=== PATIENT | female | born 1995 | race Caucasian/White ===

== ENCOUNTER 2021-06-12 14:37 | Emergency (ER) | payer OTHER, SELFPAY ==
--- NOTE | ~2021-06-12 | CT_ITS ---
EXAMINATION: CT ABDOMEN AND PELVIS WITH CONTRAST CLINICAL INFORMATION: Severe abdominal pain. Elevated white blood cell count. COMPARISON: None TECHNIQUE: Multidetector volumetric images were obtained from the superior aspect of the liver through the pubic symphysis following administration 85 mL of Omnipaque 350 intravenous contrast. Sagittal and coronal reformatted images were obtained on the technologist's workstation. Oral contrast: No This CT examination was performed using dose optimization techniques as appropriate, variously including the following: *Automated exposure control *Adjustment of mA and/or kV according to patient size (this includes techniques or standardized protocols for targeted exams where dose is matched to indication/reason for exam; i.e. extremities or head) *Use of iterative reconstruction technique DLP: 563 mGy-cm FINDINGS: LUNG BASES: The visualized lung bases are clear. Trace pericardial fluid at the inferior margin of the heart.. LIVER, GALLBLADDER, AND BILIARY TREE: The liver is normal in size, shape, and attenuation. No focal hepatic lesion or biliary ductal dilatation is present. The gallbladder is unremarkable with no evidence of radiopaque gallstones, gallbladder wall thickening, or obvious pericholecystic inflammatory changes. PANCREAS: Unremarkable. SPLEEN: Unremarkable. ADRENAL GLANDS: Unremarkable. KIDNEYS AND URETERS: The kidneys are normal in size, shape, and attenuation. No hydronephrosis, hydroureter, or calculi seen. No perinephric stranding. BLADDER: Unremarkable. GASTROINTESTINAL TRACT: The stomach is mostly decompressed and appears unremarkable. The small bowel is normal in caliber. There is no obstruction. Normal appendix. No colonic wall thickening or inflammatory change. Much of the colon is decompressed. No free air or free fluid. ABDOMINAL WALL: No significant hernia is appreciated. LYMPH NODES: Normal. VASCULAR: Normal caliber aorta. Circumaortic left renal vein. PELVIC VISCERA: The uterus and adnexa are unremarkable. OSSEOUS STRUCTURES: Unremarkable. CT/CT abdomen pelvis w con IMPRESSION: No acute finding in the abdomen or pelvis. No inflammatory change.
[2021-06-12 14:48] VITALS: BP 122/78; BP 126/80; PULSE 68; PULSE 88; RESP 18; TEMP 37.2; O2SAT 100; BMI 26.6
--- NOTE | 2021-06-12 14:51 | ED.NAVMDI ---
HPI - Nausea/Vomiting/Diarrhea General Chief complaint: Abdominal Pain <DEEPIKA Mast - Last Filed: 06/12/21 17:27> Stated complaint: nausea/vomiting <DEEPIKA Mast - Last Filed: 06/12/21 17:27> Time Seen by Provider: 06/12/21 14:41 <DEEPIKA Mast Last Filed: 06/12/21 17:27> Source: patient and EMS <DEEPIKA Mast - Last Filed: 06/12/21 17:27> Mode of arrival: EMS <DEEPIKA Mast Last Filed: 06/12/21 17:27> Limitations: no limitations <DEEPIKA Mast Last Filed: 06/12/21 17:27> History of Present Illness HPI Narrative: 26 y/o female presents to the ER from work via EMS with acute onset of nausea, bilious vomiting and abdominal pain that started 1-2 hours ago. She reports waking up feeling fine. She went to work and all of the sudden started vomiting. She has diffuse abdominal pain from all the vomiting. She has only been able to bring up bile. No fever, chills, diarrhea. Last BM yesterday and it was normal. She has no urinary symptoms. Denies chance of . LMP 5 days ago, now done. She received zofran and tylenol from EMS. On arrival she is restless, moaning, tachypneic and anxious. <DEEPIKA Mast - Last Filed: 06/12/21 17:27> MD elicited complaint: nausea, vomiting and abdominal pain <DEEPIKA Mast - Last Filed: 06/12/21 17:27> Onset (ago): hour(s) (1) <DEEPIKA Mast - Last Filed: 06/12/21 17:27> Description of vomiting: bilious <DEEPIKA Mast - Last Filed: 06/12/21 17:27> Associated nausea: Yes <DEEPIKA Mast Last Filed: 06/12/21 17:27> Associated abdominal pain: Yes <DEEPIKA Mast Last Filed: 06/12/21 17:27> Location of pain: diffuse <DEEPIKA Mast - Last Filed: 06/12/21 17:27> Radiation: diffuse <DEEPIKA Mast - Last Filed: 06/12/21 17:27> Pain consistency: constant <DEEPIKA Mast Last Filed: 06/12/21 17:27> Severity: moderate <DEEPIKA Mast Last Filed: 06/12/21 17:27> Quality: stabbing and aching <DEEPIKA Mast Last Filed: 06/12/21 17:27> Exacerbating factors: none <DEEPIKA Mast Last Filed: 06/12/21 17:27> Relieving factors: none <DEEPIKA Mast Last Filed: 06/12/21 17:27> Associated symptoms: nausea/vomiting and anxiety <DEEPIKA Mast Last Filed: 06/12/21 17:27> Related Data Allergies/Adverse reactions: Allergies Allergy/AdvReac Type Severity Reaction Status Date / Time Unable to Assess Allergy Unverified 06/12/21 14:57 <DEEPIKA Msat Last Filed: 06/12/21 17:27> Review of Systems Constitutional: Constitutional: Denies chills, Denies fever(s) and Denies headache(s) <DEEPIKA Mast Last Filed: 06/12/21 17:27> Eyes: Eyes: Reports no additional eye complaints <DEEPIKA Mast Last Filed: 06/12/21 17:27> ENT: Reports Normal hearing present, Denies headache(s) and Denies sore throat <DEEPIKA Mast Last Filed: 06/12/21 17:27> Cardiovascular: Cardiovascular: Denies chest pain and Denies dyspnea <DEEPIKA Mast Last Filed: 06/12/21 17:27> Respiratory: Respiratory: Denies chest congestion, Denies cough and Denies dyspnea <DEEPIKA Mast Last Filed: 06/12/21 17:27> Gastrointestinal: Gastrointestinal: Reports abdominal pain, Reports belching, Denies hematochezia, Denies constipation, Denies diarrhea, Reports nausea, Reports vomiting and Denies hematemesis <DEEPIKA Mast - Last Filed: 06/12/21 17:27> Genitourinary: Genitourinary: Denies abnormal vaginal bleeding, Denies dysuria and Denies pelvic pain <DEEPIKA Mast - Last Filed: 06/12/21 17:27> Musculoskeletal: Musculoskeletal: Denies back pain and Denies myalgias <DEEPIKA Mast - Last Filed: 06/12/21 17:27> Integumentary/Breasts: Skin/Breast: Denies rash <DEEPIKA Mast - Last Filed: 06/12/21 17:27> Neurologic: Reports Normal hearing present and Denies headache(s) <DEEPIKA Mast - Last Filed: 06/12/21 17:27> Psychiatric: Psychiatric: Reports anxiety <DEEPIKA Mast - Last Filed: 06/12/21 17:27> Hematologic/Lymphatic: Hematologic/Lymphatic: Denies easy bleeding and Denies easy bruising <DEEPIKA Mast - Last Filed: 06/12/21 17:27> [facility] Past Medical History Medical History: Medical History (Updated 06/12/21 @ 17:27 by DEEPIKA Mast) No known health problems <DEEPIKA Mast - Last Filed: 06/12/21 17:27> Social History Social History: Social History Advance Directives: No Advance Directives Information Provided: No Patient : No <DEEPIKA Mast - Last Filed: 06/12/21 17:27> Physical Exam Vital Signs: Vital Signs: Last Vital Signs Temp 99 F 06/12/21 14:48 Pulse 68 06/12/21 14:48 Resp 18 06/12/21 14:48 BP 122/78 06/12/21 14:48 Pulse Ox 100 06/12/21 14:48 Body Mass Index 26.6 <DEEPIKA Mast - Last Filed: 06/12/21 17:27> Vital Signs: Last Vital Signs Temp 99 F 06/12/21 14:48 Pulse 68 06/12/21 14:48 Resp 18 06/12/21 14:48 BP 122/78 06/12/21 14:48 Pulse Ox 100 06/12/21 14:48 Body Mass Index 26.6 <DEEPIKA Cevallos Last Filed: 06/12/21 19:08> Const: General: well developed, alert, awake, acute distress (in pain) moderate and anxious <DEEPIKA Mast Last Filed: 06/12/21 17:27> Nutritional Appearance: average body habitus <DEEPIKA Mast Last Filed: 06/12/21 17:27> Orientation/consciousness: patient oriented x3 <DEEPIKA Mast Last Filed: 06/12/21 17:27> Limitations: no limitations <DEEPIKA Mast Last Filed: 06/12/21 17:27> HENMT: Head: Yes normal to inspection <DEEPIKA Mast Last Filed: 06/12/21 17:27> Ears: hearing grossly normal bilaterally and external ears normal <DEEPIKA Mast Last Filed: 06/12/21 17:27> General nose exam: Normal external nose present and Normal nares present <DEEPIKA Mast Last Filed: 06/12/21 17:27> Face and sinus: Yes normal facial exam and Yes face symmetric <DEEPIKA Mast Last Filed: 06/12/21 17:27> Mouth: Normal oral and palatal mucosa present, lip normal and tongue normal <DEEPIKA Mast Last Filed: 06/12/21 17:27> Teeth and gingiva: dentition normal and gingiva normal <DEEPIKA Mast Last Filed: 06/12/21 17:27> Throat: Yes posterior oropharynx normal, Yes tonsils normal and Yes uvula midline <DEEPIKA Mast Last Filed: 06/12/21 17:27> Eyes: General: appearance normal, both eyes and all related structures <DEEPIKA Mast Last Filed: 06/12/21 17:27> Neck: Neck: Yes normal visual inspection <DEEPIKA Mast Last Filed: 06/12/21 17:27> Chest: Chest palpation & inspection: normal inspection of the chest <DEEPIKA Mast Last Filed: 06/12/21 17:27> Resp: Effort & Inspection: able to speak in complete sentences and tachypneic <DEEPIKA Mast - Last Filed: 06/12/21 17:27> Auscultation: clear to auscultation bilaterally <DEEPIKA Mast - Last Filed: 06/12/21 17:27> Cardio: Rate: regular rate <DEEPIKA Mast - Last Filed: 06/12/21 17:27> Rhythm: regular rhythm <DEEPIKA Mast - Last Filed: 06/12/21 17:27> Heart sounds: S1 normal heart sound present and S2 normal heart sound present <DEEPIKA Mast - Last Filed: 06/12/21 17:27> GI: Inspection: Yes normal to inspection <DEEPIKA Mast - Last Filed: 06/12/21 17:27> Palpation (GI): Soft to palpation, Tenderness to palpation present (GI) periumbilically, no guarding and not rigid <DEEPIKA Mast - Last Filed: 06/12/21 17:27> Percussion: Yes normal to percussion <DEEPIKA Mast - Last Filed: 06/12/21 17:27> Auscultation: normal bowel sounds <DEEPIKA Mast - Last Filed: 06/12/21 17:27> Rectal Exam - Female: deferred <DEEPIKA Mast - Last Filed: 06/12/21 17:27> Skin: General skin exam: no rashes or lesions noted <DEEPIKA Mast - Last Filed: 06/12/21 17:27> Neuro: General: patient oriented x3 and moves all extremities <DEEPIKA Mast - Last Filed: 06/12/21 17:27> Cranial nerves: Yes Normal hearing present <DEEPIKA Mast - Last Filed: 06/12/21 17:27> Extrem: General: Yes normal to inspection, Yes full ROM, Yes no pedal edema and Yes no calf tenderness <DEEPIKA Mast - Last Filed: 06/12/21 17:27> Psych: Appearance: grossly normal <DEEPIKA Mast - Last Filed: 06/12/21 17:27> Speech and movement: Clear speech present <DEEPIKA Mast - Last Filed: 06/12/21 17:27> Affect: Animated affect present and Anxious affect present <DEEPIKA Mast - Last Filed: 06/12/21 17:27> Course Course Course Narrative: 26 y/o female presenting with acute onset of N/V and severe abdominal pain for the last 2 hours. Abd is soft with some central tenderness, no guarding or rigidity. She reports the pain is all over her abdomen. Her VS are normal. Will get basic labs, check Utox - admits to marijuana use but denies any history of cyclical vomiting. Will give dose of benadryl and reglan and reassess. <DEEPIKA Mast - Last Filed: 06/12/21 17:27> Reevaluation(s) Reevaluation #1: Continues to have nausea and severe pain. Will give dose of morphine and ativan. WBC 16K, likely reactive from vomiting however given her reports of severe pain with some central tenderness, will get CT of her abd as well. Will sign out to night provider to f/u imaging and reassess. <DEEPIKA Mast - Last Filed: 06/12/21 17:27> Time: 19:00 <DEEPIKA Ceavllos - Last Filed: 06/12/21 19:08> Reevaluation #2: -CT abdomen pelvis w con IMPRESSION: No acute finding in the abdomen or pelvis. No inflammatory change.? > results discussed with patient, she reports symptomatic improvement. Tolerated p.o. Joanne Jennifer and Jell-O in the ED without nausea or vomiting. Discussed with patient she should follow-up with GI, already has a prescription for Zofran. Worrisome signs and symptoms and strict return precautions discussed, she verbalized understanding feel safe for discharge home <DEEPIKA Cevallos - Last Filed: 06/12/21 19:08> MDM - Nausea/Vomiting/Diarrhea Lab Data Result diagrams: : 06/12/21 16:24 06/12/21 16:24 <DEEPIKA Mast - Last Filed: 06/12/21 17:27> Labs: Lab Results 06/12/21 06/12/21 06/12/21 Range/Units 15:48 16:24 16:24 WBC 16.1 H (4.8-10.8) X10*3/uL RBC 4.42 (4.20-5.50) X10*6/uL Hgb 13.2 (12.0-16.0) g/dl Hct 39.7 (37-47) % MCV 89.8 (80-98) fL MCH 29.9 (27.0-33.0) pg MCHC 33.2 (31.0-35.0) g/dl RDW 12.0 (11.0-16.0) % Plt Count 271 (160-400) X10*3/uL MPV 10.9 (9.4-12.3) fL Immature Gran % (Auto) 0.5 H (0.0-0.4) % Neut % (Auto) 79.0 H (45-73) % Lymph % (Auto) 13.0 L (20-40) % [place] % (Auto) 6.9 (2-11) % Eos % (Auto) 0.2 (0-4) % Baso % (Auto) 0.4 (0-2) % Lymph # (Auto) 2.1 (1.2-4.9) X10*3/uL [place] # (Auto) 1.1 (0.1-1.2) X10*3/uL Eos # (Auto) 0.0 (0.0-0.4) X10*3/uL Baso # (Auto) 0.1 (0.0-0.2) X10*3/uL Abs Immat Gran (auto) 0.08 H (0.00-0.03) X10*3/uL Absolute Neuts (auto) 12.7 H (2.0-8.3) X10*3/uL Absolute Nucleated RBC 0.000 (0.0-0.012) X10*3/uL Nucleated RBC % (auto) 0.0 (0.0-0.2) /100WBC Sodium 140 (135-145) mmol/L Potassium 3.5 (3.3-5.1) mmol/L Chloride 108 (96-108) mmol/L Carbon Dioxide 18 L (22-29) mmol/L Anion Gap 18 (12-20) BUN 10 (9-16) mg/dL Creatinine 0.74 (0.5-1.4) mg/dL Estim Creat Clear Calc 126.3 Estimated GFR > 60 Random Glucose 131 H (60-115) mg/dL Calcium 8.3 L (8.4-10.2) mg/dL Magnesium 2.0 (1.6-2.6) mg/dL Total Bilirubin 1.3 H (0.0-1.0) mg/dL Direct Bilirubin 0.3 (0.0-0.5) mg/dL AST 22 (5-31) U/L ALT 15 (0-31) U/L Alkaline Phosphatase 60 (39-117) U/L Total Protein 7.1 (6.5-8.0) g/dL Albumin 4.1 (3.5-5.0) g/dL Lipase 14 (8-78) U/L Beta HCG, Quant < 2 mIU/mL Urine Color Urine Appearance Urine pH (5.0-8.0) Ur Specific [place] (1.005-1.025) Urine Protein (NEG-TRACE) MG/DL Urine Glucose (UA) (NEG) MG/DL Urine Ketones (NEG) MG/DL Urine Blood (NEG) Urine Nitrite (NEG) Ur Leukocyte Esterase (NEG) Urine RBC (0) /HPF Urine WBC (0-4) /HPF Ur Squamous Epith Cells /LPF Urine Bacteria /LPF Urine Opiates Screen (Not Detect) Urine Fentanyl Screen (Not Detect) Ur Barbiturates Screen (Not Detect) Ur Phencyclidine Scrn (Not Detect) Ur Amphetamines Screen (Not Detect) U Benzodiazepines Scrn (Not Detect) Urine Cocaine Screen (Not Detect) U Marijuana (THC) Screen (Not Detect) Coronavirus (PCR) NEGATIVE (Negative) Influenza Type A (PCR) NEGATIVE (Negative) Influenza Type B (PCR) NEGATIVE (Negative) RSV RNA Qual (PCR) NEGATIVE (Negative) 06/12/21 06/12/21 Range/Units 16:24 16:24 WBC (4.8-10.8) X10*3/uL RBC (4.20-5.50) X10*6/uL Hgb (12.0-16.0) g/dl Hct (37-47) % MCV (80-98) fL MCH (27.0-33.0) pg MCHC (31.0-35.0) g/dl RDW (11.0-16.0) % Plt Count (160-400) X10*3/uL MPV (9.4-12.3) fL Immature Gran % (Auto) (0.0-0.4) % Neut % (Auto) (45-73) % Lymph % (Auto) (20-40) % [place] % (Auto) (2-11) % Eos % (Auto) (0-4) % Baso % (Auto) (0-2) % Lymph # (Auto) (1.2-4.9) X10*3/uL [place] # (Auto) (0.1-1.2) X10*3/uL Eos # (Auto) (0.0-0.4) X10*3/uL Baso # (Auto) (0.0-0.2) X10*3/uL Abs Immat Gran (auto) (0.00-0.03) X10*3/uL Absolute Neuts (auto) (2.0-8.3) X10*3/uL Absolute Nucleated RBC (0.0-0.012) X10*3/uL Nucleated RBC % (auto) (0.0-0.2) /100WBC Sodium (135-145) mmol/L Potassium (3.3-5.1) mmol/L Chloride (96-108) mmol/L Carbon Dioxide (22-29) mmol/L Anion Gap (12-20) BUN (9-16) mg/dL Creatinine (0.5-1.4) mg/dL Estim Creat Clear Calc Estimated GFR Random Glucose (60-115) mg/dL Calcium (8.4-10.2) mg/dL Magnesium (1.6-2.6) mg/dL Total Bilirubin (0.0-1.0) mg/dL Direct Bilirubin (0.0-0.5) mg/dL AST (5-31) U/L ALT (0-31) U/L Alkaline Phosphatase (39-117) U/L Total Protein (6.5-8.0) g/dL Albumin (3.5-5.0) g/dL Lipase (8-78) U/L Beta HCG, Quant mIU/mL Urine Color YELLOW Urine Appearance CLEAR Urine pH 7.5 (5.0-8.0) Ur Specific [place] 1.015 (1.005-1.025) Urine Protein NEG (NEG-TRACE) MG/DL Urine Glucose (UA) NEG (NEG) MG/DL Urine Ketones 40 (NEG) MG/DL Urine Blood NEG (NEG) Urine Nitrite NEG (NEG) Ur Leukocyte Esterase 2+ H (NEG) Urine RBC 0 (0) /HPF Urine WBC 1-4 (0-4) /HPF Ur Squamous Epith Cells 3+ /LPF Urine Bacteria 4+ /LPF Urine Opiates Screen Not Detected (Not Detect) Urine Fentanyl Screen Not Detected (Not Detect) Ur Barbiturates Screen Not Detected (Not Detect) Ur Phencyclidine Scrn Not Detected (Not Detect) Ur Amphetamines Screen Not Detected (Not Detect) U Benzodiazepines Scrn Not Detected (Not Detect) Urine Cocaine Screen Not Detected (Not Detect) U Marijuana (THC) Screen POSITIVE H (Not Detect) Coronavirus (PCR) (Negative) Influenza Type A (PCR) (Negative) Influenza Type B (PCR) (Negative) RSV RNA Qual (PCR) (Negative) <DEEPIKA Mast - Last Filed: 06/12/21 17:27> Lab Results 06/12/21 06/12/21 06/12/21 Range/Units 15:48 16:24 16:24 WBC 16.1 H (4.8-10.8) X10*3/uL RBC 4.42 (4.20-5.50) X10*6/uL Hgb 13.2 (12.0-16.0) g/dl Hct 39.7 (37-47) % MCV 89.8 (80-98) fL MCH 29.9 (27.0-33.0) pg MCHC 33.2 (31.0-35.0) g/dl RDW 12.0 (11.0-16.0) % Plt Count 271 (160-400) X10*3/uL MPV 10.9 (9.4-12.3) fL Immature Gran % (Auto) 0.5 H (0.0-0.4) % Neut % (Auto) 79.0 H (45-73) % Lymph % (Auto) 13.0 L (20-40) % [place] % (Auto) 6.9 (2-11) % Eos % (Auto) 0.2 (0-4) % Baso % (Auto) 0.4 (0-2) % Lymph # (Auto) 2.1 (1.2-4.9) X10*3/uL [place] # (Auto) 1.1 (0.1-1.2) X10*3/uL Eos # (Auto) 0.0 (0.0-0.4) X10*3/uL Baso # (Auto) 0.1 (0.0-0.2) X10*3/uL Abs Immat Gran (auto) 0.08 H (0.00-0.03) X10*3/uL Absolute Neuts (auto) 12.7 H (2.0-8.3) X10*3/uL Absolute Nucleated RBC 0.000 (0.0-0.012) X10*3/uL Nucleated RBC % (auto) 0.0 (0.0-0.2) /100WBC Sodium 140 (135-145) mmol/L Potassium 3.5 (3.3-5.1) mmol/L Chloride 108 (96-108) mmol/L Carbon Dioxide 18 L (22-29) mmol/L Anion Gap 18 (12-20) BUN 10 (9-16) mg/dL Creatinine 0.74 (0.5-1.4) mg/dL Estim Creat Clear Calc 126.3 Estimated GFR > 60 Random Glucose 131 H (60-115) mg/dL Calcium 8.3 L (8.4-10.2) mg/dL Magnesium 2.0 (1.6-2.6) mg/dL Total Bilirubin 1.3 H (0.0-1.0) mg/dL Direct Bilirubin 0.3 (0.0-0.5) mg/dL AST 22 (5-31) U/L ALT 15 (0-31) U/L Alkaline Phosphatase 60 (39-117) U/L Total Protein 7.1 (6.5-8.0) g/dL Albumin 4.1 (3.5-5.0) g/dL Lipase 14 (8-78) U/L Beta HCG, Quant < 2 mIU/mL Urine Color Urine Appearance Urine pH (5.0-8.0) Ur Specific [place] (1.005-1.025) Urine Protein (NEG-TRACE) MG/DL Urine Glucose (UA) (NEG) MG/DL Urine Ketones (NEG) MG/DL Urine Blood (NEG) Urine Nitrite (NEG) Ur Leukocyte Esterase (NEG) Urine RBC (0) /HPF Urine WBC (0-4) /HPF Ur Squamous Epith Cells /LPF Urine Bacteria /LPF Urine Opiates Screen (Not Detect) Urine Fentanyl Screen (Not Detect) Ur Barbiturates Screen (Not Detect) Ur Phencyclidine Scrn (Not Detect) Ur Amphetamines Screen (Not Detect) U Benzodiazepines Scrn (Not Detect) Urine Cocaine Screen (Not Detect) U Marijuana (THC) Screen (Not Detect) Coronavirus (PCR) NEGATIVE (Negative) Influenza Type A (PCR) NEGATIVE (Negative) Influenza Type B (PCR) NEGATIVE (Negative) RSV RNA Qual (PCR) NEGATIVE (Negative) 06/12/21 06/12/21 Range/Units 16:24 16:24 WBC (4.8-10.8) X10*3/uL RBC (4.20-5.50) X10*6/uL Hgb (12.0-16.0) g/dl Hct (37-47) % MCV (80-98) fL MCH (27.0-33.0) pg MCHC (31.0-35.0) g/dl RDW (11.0-16.0) % Plt Count (160-400) X10*3/uL MPV (9.4-12.3) fL Immature Gran % (Auto) (0.0-0.4) % Neut % (Auto) (45-73) % Lymph % (Auto) (20-40) % [place] % (Auto) (2-11) % Eos % (Auto) (0-4) % Baso % (Auto) (0-2) % Lymph # (Auto) (1.2-4.9) X10*3/uL [place] # (Auto) (0.1-1.2) X10*3/uL Eos # (Auto) (0.0-0.4) X10*3/uL Baso # (Auto) (0.0-0.2) X10*3/uL Abs Immat Gran (auto) (0.00-0.03) X10*3/uL Absolute Neuts (auto) (2.0-8.3) X10*3/uL Absolute Nucleated RBC (0.0-0.012) X10*3/uL Nucleated RBC % (auto) (0.0-0.2) /100WBC Sodium (135-145) mmol/L Potassium (3.3-5.1) mmol/L Chloride (96-108) mmol/L Carbon Dioxide (22-29) mmol/L Anion Gap (12-20) BUN (9-16) mg/dL Creatinine (0.5-1.4) mg/dL Estim Creat Clear Calc Estimated GFR Random Glucose (60-115) mg/dL Calcium (8.4-10.2) mg/dL Magnesium (1.6-2.6) mg/dL Total Bilirubin (0.0-1.0) mg/dL Direct Bilirubin (0.0-0.5) mg/dL AST (5-31) U/L ALT (0-31) U/L Alkaline Phosphatase (39-117) U/L Total Protein (6.5-8.0) g/dL Albumin (3.5-5.0) g/dL Lipase (8-78) U/L Beta HCG, Quant mIU/mL Urine Color YELLOW Urine Appearance CLEAR Urine pH 7.5 (5.0-8.0) Ur Specific [place] 1.015 (1.005-1.025) Urine Protein NEG (NEG-TRACE) MG/DL Urine Glucose (UA) NEG (NEG) MG/DL Urine Ketones 40 (NEG) MG/DL Urine Blood NEG (NEG) Urine Nitrite NEG (NEG) Ur Leukocyte Esterase 2+ H (NEG) Urine RBC 0 (0) /HPF Urine WBC 1-4 (0-4) /HPF Ur Squamous Epith Cells 3+ /LPF Urine Bacteria 4+ /LPF Urine Opiates Screen Not Detected (Not Detect) Urine Fentanyl Screen Not Detected (Not Detect) Ur Barbiturates Screen Not Detected (Not Detect) Ur Phencyclidine Scrn Not Detected (Not Detect) Ur Amphetamines Screen Not Detected (Not Detect) U Benzodiazepines Scrn Not Detected (Not Detect) Urine Cocaine Screen Not Detected (Not Detect) U Marijuana (THC) Screen POSITIVE H (Not Detect) Coronavirus (PCR) (Negative) Influenza Type A (PCR) (Negative) Influenza Type B (PCR) (Negative) RSV RNA Qual (PCR) (Negative) <DEEPIKA Cevallos - Last Filed: 06/12/21 19:08> Discharge Plan Discharge Clinical Impression: Acute nausea with nonbilious vomiting <DEEPIKA Mast - Last Filed: 06/12/21 17:27> Patient Disposition: Home, Self-Care <DEEPIKA Mast - Last Filed: 06/12/21 17:27> Instructions: Acute Nausea and Vomiting (ED), Acute Abdominal Pain (ED) <DEEPIKA Mast - Last Filed: 06/12/21 17:27> Additional Instructions: Your blood work was reassuring Your CT scan was unremarkable It is important for you to follow-up with GI Continue taking Zofran as prescribed Stay hydrated Practice small frequent meals rather than large meals Practice a bland diet If symptoms persist or worsen, become unbearable, you are unable to eat or drink return to the ED <DEEPIKA Mast - Last Filed: 06/12/21 17:27> Referrals: Elieser Sánchez [Physician] - 5 days <DEEPIKA Mast - Last Filed: 06/12/21 17:27>
[2021-06-12] MEDS: diphenhydrAMINE HCL 50 MG/ML VIAL IVPUSH (15:20)
[2021-06-12] MEDS: 0.9 % Sodium Chloride 1,000 ML 999 ML IVCONT ×2 (15:20→18:10)
[2021-06-12] MEDS: Metoclopramide HCl 10 MG/2 ML VIAL IVPUSH (15:20)
[2021-06-12 16:31] LABS: MANUAL DIFF FLAG NO
[2021-06-12 16:32] LABS: Basophils Absolute Auto 0.1 X10*3/uL (0.0-0.2); Basophils Percent Auto 0.4 % (0-2); Eosinophils Percent Auto 0.2 % (0-4); Hematocrit 39.7 % (37-47); Hemoglobin 13.2 g/dl (12.0-16.0); Imm Gran Abs Auto 0.08 X10*3/uL (0.00-0.03); Imm Gran Pct Auto 0.5 % (0.0-0.4); Lymphocytes Absolute Auto 2.1 X10*3/uL (1.2-4.9); Mean Corpuscular HGB Conc 33.2 g/dl (31.0-35.0); Mean Corpuscular Hemoglobin 29.9 pg (27.0-33.0); Mean Corpuscular Volume 89.8 fL (80-98); Mean Platelet Volume 10.9 fL (9.4-12.3); Monocytes Absolute Auto 1.1 X10*3/uL (0.1-1.2); Monocytes Percent Auto 6.9 % (2-11); Neutrophils Absolute Auto 12.7 X10*3/uL (2.0-8.3); Platelet Count 271 X10*3/uL (160-400); Red Blood Count 4.42 X10*6/uL (4.20-5.50); White Blood Count 16.1 X10*3/uL (4.8-10.8)
[2021-06-12 16:52] LABS: Amphetamine Screen Urine Not Detected (Not Detect); Barbiturates, Urine Not Detected (Not Detect); Benzodiazepines Screen Urine Not Detected (Not Detect); Cannabinoid Screen Urine POSITIVE (Not Detect); Cocaine Screen Urine Not Detected (Not Detect); Fentanyl, urine Not Detected (Not Detect); Glucose Urine UA NEG (NEG); Leukocyte Esterase Urine 2+ (NEG); Nitrite Urine NEG (NEG); Opiate Screen Urine Not Detected (Not Detect); PH 7.5 (5.0-8.0); Phencyclidine Screen Urine Not Detected (Not Detect); Specific Gravity - Urine 1.015 (1.005-1.025); UACC Culture Trigger YES; Urine Blood NEG (NEG); Urine Ketones 40 MG/DL (NEG); Urine Protein NEG (NEG-TRACE)
[2021-06-12 16:56] LABS: Alanine Aminotransferase 15 U/L (0-31); Albumin Level 4.1 g/dL (3.5-5.0); Alkaline Phosphatase 60 U/L (39-117); Anion Gap 18 (12-20); Aspartate Amino Transferase 22 U/L (5-31); Bilirubin Direct 0.3 mg/dL (0.0-0.5); Bilirubin Total 1.3 mg/dL (0.0-1.0); Blood Urea Nitrogen 10 mg/dL (9-16); Calcium 8.3 mg/dL (8.4-10.2); Carbon Dioxide 18 mmol/L (22-29); Chloride 108 mmol/L (96-108); Creatinine Clr Calc Pharmacy 126.3; Estimated Glomerular Filt Rate > 60; Glucose Random 131 mg/dL (60-115); Lipase 14 U/L (8-78); Potassium 3.5 mmol/L (3.3-5.1); Sodium 140 mmol/L (135-145); Total Protein 7.1 g/dL (6.5-8.0)
[2021-06-12 16:58] LABS: Influenza A PCR NEGATIVE (Negative); Influenza B PCR NEGATIVE (Negative); Resp Syncy Virus RNA Qual PCR NEGATIVE (Negative); SARS COV2 PCR INHOUSE NEGATIVE (Negative)
[2021-06-12 17:02] LABS: HCG Quantitative < 2 mIU/mL
[2021-06-12 17:10] LABS: Appearance Urine CLEAR; Color Urine YELLOW
[2021-06-12] MEDS: LORazepam 2 MG/ML VIAL 1 MG IVPUSH (17:17)
[2021-06-12] MEDS: Morphine Sulfate 4 MG/ML CARTRIDGE IVPUSH (17:18)
[2021-06-12 17:32] LABS: Bacteria Urine 4+ /LPF; RBC Urine 0 /HPF (0); Squamous Epithelial Cell Urine 3+ /LPF
[2021-06-12] MEDS: iohexoL 350 MG/ML 100 ML INFUS..BTL IV (18:06)
--- NOTE | 2021-06-12 18:59 | PC.NURSE ---
assumed care of patient at this time. Client at bedside with S/O with fluids flowing. Client states 2/10 pain. Labs currently unremarkable. Elevated white blood cell count secondary to vomitting? Per ED physicival client will follow up with GI
== END 2021-06-12 19:18 | disposition home or self-care (01) ==
PROVIDERS: Physician Assistant; Emergency Provider Emergency Medicine; PCP Family Medicine
DX: R11.2 Nausea with vomiting, unspecified (principal); Z20.822 Contact with and (suspected) exposure to COVID-19; R10.9 Unspecified abdominal pain; F12.90 Cannabis use, unspecified, uncomplicated
CPT/HCPCS: 0241U; 36415; 74177; 80048; 80076; 80307; 81001; 81003; 83690; 83735; 84702; 85025; 87086; 96361; 96374; 96375; 99284; J1200; J2060; J2270; J2765; Q9967

== ENCOUNTER 2021-07-18 09:31 | Day surgery (SDC) | payer OTHER, SELFPAY ==
[2021-07-14 13:15] VITALS: BMI 26.9
--- NOTE | 2021-07-18 09:54 | HO.ANESPROP2 ---
[facility] Past Medical History Medical History No known health problems Family History Family history of problems with anesthesia: No Surgical History Surgical History Hx of wisdom tooth extraction History of Problems with Anesthesia: No Social History Social History Patient Tobacco Use Status: Tobacco use Unknown Advance Directives Information Provided: No (as above noted) Advance Directives on File: No Meds Allergies Allergy/AdvReac Type Severity Reaction Status Date / Time No Known Allergies Allergy Verified 07/18/21 09:45 Home Medications Medication Instructions Recorded Confirmed Last Taken Type escitalopram oxalate 20 mg tablet 1 tab PO DAILY 07/14/21 07/14/21 07/18/21 08:00 History ondansetron HCl 8 mg tablet 1 tab PO TID 07/14/21 07/14/21 Unknown History Exam Exam Date and Time: July 18, 2021 0954 Height,Weight and Vital Signs: Height 5 ft 8 in Weight 80.286 kg Airway Mallampati Class: II TM Dist: >3cm Neck ROM: Full Assessment and Plan Assessment Anesthesia Assessment: Anesthesia Plan Discussed and Chart Reviewed Final Anesthetic Review Family History of Problems with Anesthesia: No History of Problems with Anesthesia: No NPO: Yes ASA Class: II Final Preanesthetic Review: No Changes in Pt Med Stat, Meds/Allgs Chart Reviewed, Consent Obtained/Reviewed and Anes Risks/Benef Reviewed Patient Risk: Low Procedure Risk: Low Assessment/Block/Sedation in SS: Assess/Block/Sedation-SS Anesthetic Plan Anesthetic Plan: MAC:
[2021-07-18 09:59] VITALS: BP 118/70; PULSE 68; RESP 18; TEMP 36.1; O2SAT 96
--- NOTE | 2021-07-18 10:14 | MHC.SHP ---
Pre-Procedural Eval Section A Date of Service: 07/18/21 The patient is an INPATIENT: No Changes since office visit: No Cold of Flu in the past 2 weeks, No New Medical Problems, No Changes in Medication and No Patient answered all questions The History & Physical has been completed within 30 days and I have reviewed it.: Yes Section B Chief Complaint: epi pain Allergies: Allergies Allergy/AdvReac Type Severity Reaction Status Date / Time No Known Allergies Allergy Verified 07/18/21 09:45 Plan I have reviewed the history and physical and performed a pertinent physical examination on my patient. No changes have occurred unless specified.
[2021-07-18 10:36] VITALS: BP 97/49; PULSE 65; RESP 16; TEMP 36.4; O2SAT 98
--- NOTE | 2021-07-18 10:45 | PM.OP ---
Brief Operative Note Date of Service: 07/18/21 Pre-op diagnosis: epigastric pain Post-op diagnosis: same Procedure: egd Surgeon: Elieser Sánchez Anesthesia: MAC Was an Premium Cancellation Clerk used for this Procedure?: No Estimated blood loss (mL): 2 Pathology: other (bxs antrum, duodenum, egj) Condition: stable Disposition: PACU
[2021-07-18 10:51] VITALS: BP 112/69; PULSE 65; RESP 20; TEMP 36.4; O2SAT 100
--- NOTE | 2021-07-18 12:30 | OP_ITS ---
SURGEON: Elieser Sánchez MD INDICATIONS: Epigastric pain. PREOPERATIVE DIAGNOSIS: POSTOPERATIVE DIAGNOSIS: PROCEDURE PERFORMED: Upper endoscopy with biopsy. ESTIMATED BLOOD LOSS: COMPLICATIONS: ANESTHESIA: ASSISTANTS: SPECIMENS: MEDICATIONS: Monitored anesthesia care. DESCRIPTION OF PROCEDURE: History and physical performed. The risks and benefits of the procedure were explained to the patient. Informed consent was obtained. The patient was placed in the left lateral decubitus position. The Olympus video gastroscope was introduced into the esophagus, stomach, and duodenum. Examination was performed and the scope was removed. She tolerated the procedure well and was taken to recovery area in stable condition. FINDINGS: Esophagus: The esophagus was normal. There was no esophagitis. Stomach: The stomach showed no evidence of masses, ulcers, or polyps. Duodenum: The bulb and second portion were normal. Biopsies were obtained from the EG junction, antrum, and duodenum. IMPRESSION: Normal upper endoscopy. RECOMMENDATION: Follow up the biopsy results. MD ELGIN Lomas/SHERRIL / [id number]
== END 2021-07-18 11:20 | disposition home or self-care (01) ==
PROVIDERS: PCP Family Medicine; Visit Provider Internal Medicine Gastroenterology
PROC: 0DJ08ZZ Inspection of Upper Intestinal Tract, Via Natural or Artificial Opening Endoscopic (ICD-10-PCS; CPT 43235; principal; 2021-07-18 10:40)
DX: R10.13 Epigastric pain (principal); R11.2 Nausea with vomiting, unspecified; Z79.899 Other long term (current) drug therapy
CPT/HCPCS: 43239; 88305; 88342; J3010